=== PATIENT | female | born 1975 | race Caucasian/White ===

== ENCOUNTER 2021-07-01 12:40 | Emergency (ER) | payer OTHER ==
[~2021-07-01] VITALS: Ht 167.6 cm; Wt 97.5 kg
[2021-07-01 13:10] VITALS: BP 128/85
--- NOTE | 2021-07-01 13:10 | NUR ---
ravindra and flu swabbed at this time
[2021-07-01] MEDS ORDERED: ALBU0.0912 IH (13:21)
--- NOTE | 2021-07-01 14:25 | NUR ---
Patient discharged with v/s stable. Written and verbal after care instructions ABOUT ACUTE BRONCHITIS given and explained. Patient alert, oriented and verbalized understanding of instructions. Ambulatory with steady gait. All questions addressed prior to discharge. ID band removed. Patient advised to follow up with PMD. Rx of ALBUTEROL given. Patient educated on indication of medication including possible reaction and side effects. Opportunity to ask questions provided and answered.
== END 2021-07-01 14:25 | disposition home or self-care (01) ==
LOC: MED 12:40
DX: J20.9 Acute bronchitis, unspecified (principal); E11.9 Type 2 diabetes mellitus without complications; Z20.822 Contact with and (suspected) exposure to COVID-19; Z79.899 Other long term (current) drug therapy
CPT/HCPCS: 99283